=== PATIENT | female | born 1935 | race Native Hawaiian/Other Pacific Islander ===

== ENCOUNTER 2016-10-15 08:36 | Inpatient (IN) | payer OTHER ==
[~2016-10-15 08:36] MED LIST: AMLO5TAB; ASA LO-DOSE81 MG PO; CEPH500C20 PO; CIPRO500 MG PO; CLON0.5T36 PO; FERROUS SULF325 M1 PO; FLUT0.05 NAS; GABA300C2; GLIM4TAB PO; HORIZANT300 MG PO; JANUVIA50 MG OR; LEVO0.117 PO; LIPITOR80 MG; LISI10TA11; MECL25TA84 PO; MELO-13 PO; METOPROL TAR50 MG OR; NEXIUM40 M1 PO; ONGLYZA5 MG PO; PLAVIX75 MG OR
== END 2016-11-15 08:00 | disposition still patient (30) ==
LOC: PAVA 08:36
PROVIDERS: ADMIT Internal Medicine
DX: Z51.89 Encounter for other specified aftercare (principal)

== ENCOUNTER 2016-11-15 09:00 | Inpatient (IN) | payer OTHER | END 2016-12-16 08:37 | disposition still patient (30) | LOC: PAVA 09:00 | PROVIDERS: ADMIT Internal Medicine | DX: Z51.89 Encounter for other specified aftercare (principal) ==

== ENCOUNTER 2016-12-16 09:12 | Inpatient (IN) | payer OTHER | END 2017-01-13 08:17 | disposition still patient (30) | LOC: PAVA 09:12 | PROVIDERS: ADMIT Internal Medicine | DX: Z51.89 Encounter for other specified aftercare (principal) ==

== ENCOUNTER 2017-01-13 04:19 | Outpatient (CLI) | payer OTHER | END 2017-01-13 22:48 | disposition home or self-care (01) | LOC: LAB 04:19 | DX: Z79.01 Long term (current) use of anticoagulants (principal); Z51.81 Encounter for therapeutic drug level monitoring; E11.9 Type 2 diabetes mellitus without complications | CPT/HCPCS: 36415; 83036 ==

== ENCOUNTER 2017-01-13 08:42 | Inpatient (IN) | payer OTHER | END 2017-02-13 08:02 | disposition still patient (30) | LOC: PAVA 08:42 | PROVIDERS: ADMIT Internal Medicine | DX: Z51.89 Encounter for other specified aftercare (principal) ==

== ENCOUNTER 2017-02-13 09:49 | Inpatient (IN) | payer OTHER | END 2017-03-15 08:30 | disposition still patient (30) | LOC: PAVA 09:49 | PROVIDERS: ADMIT Internal Medicine | DX: Z51.89 Encounter for other specified aftercare (principal) ==

== ENCOUNTER 2017-03-12 23:55 | Outpatient (CLI) | payer OTHER | END 2017-03-12 23:59 | disposition home or self-care (01) | LOC: LAB 23:55 | DX: Z16.24 Resistance to multiple antibiotics (principal) | CPT/HCPCS: 87081 ==

== ENCOUNTER 2017-03-15 08:49 | Inpatient (IN) | payer OTHER | END 2017-04-15 08:11 | disposition still patient (30) | LOC: PAVA 08:49 | PROVIDERS: ADMIT Internal Medicine | DX: Z51.89 Encounter for other specified aftercare (principal) ==

== ENCOUNTER 2017-04-15 08:25 | Inpatient (IN) | payer OTHER | END 2017-05-15 14:57 | disposition still patient (30) | LOC: PAVA 08:25 | PROVIDERS: ADMIT Internal Medicine | DX: Z51.89 Encounter for other specified aftercare (principal) ==

== ENCOUNTER 2017-04-16 06:22 | Outpatient (CLI) | payer OTHER ==
[2017-04-16 07:56] LABS: PLATELET COUNT 212 K/uL (152-353)
[2017-04-16 08:11] LABS: POTASSIUM 4.6 mmol/L (3.6-5.2)
== END 2017-04-16 07:30 | disposition home or self-care (01) ==
LOC: LAB 06:22
PROVIDERS: Internal Medicine
DX: Z79.899 Other long term (current) drug therapy (principal); D64.89 Other specified anemias; E03.8 Other specified hypothyroidism; Z51.81 Encounter for therapeutic drug level monitoring
CPT/HCPCS: 36415; 80053; 80061; 84443; 85027

== ENCOUNTER 2017-05-15 15:09 | Inpatient (IN) | payer OTHER | END 2017-06-15 08:36 | disposition still patient (30) | LOC: PAVA 15:09 | PROVIDERS: ADMIT Internal Medicine | DX: Z51.89 Encounter for other specified aftercare (principal) ==

== ENCOUNTER 2017-06-15 09:14 | Inpatient (IN) | payer OTHER | END 2017-07-16 08:11 | disposition still patient (30) | LOC: PAVA 09:14 → EDBD 07-16 08:11 → PAVA 07-16 08:11 | PROVIDERS: ADMIT Internal Medicine | DX: Z51.89 Encounter for other specified aftercare (principal) ==

== ENCOUNTER 2017-07-16 08:28 | Inpatient (IN) | payer OTHER | END 2017-08-15 09:08 | disposition still patient (30) | LOC: PAVA 08:28 → EDBD 08-15 09:08 → PAVA 08-15 09:08 | PROVIDERS: ADMIT Internal Medicine | DX: Z51.89 Encounter for other specified aftercare (principal) ==

== ENCOUNTER 2017-07-19 06:35 | Outpatient (CLI) | payer OTHER | END 2017-07-19 18:58 | disposition home or self-care (01) | LOC: EDBD 06:35 → LAB 06:35 | DX: E11.9 Type 2 diabetes mellitus without complications (principal) | CPT/HCPCS: 36415; 83036 ==

== ENCOUNTER 2017-08-15 09:24 | Inpatient (IN) | payer OTHER | END 2017-09-15 10:25 | disposition still patient (30) | LOC: PAVA 09:24 → EDBD 09-15 10:25 → PAVA 09-15 10:25 | PROVIDERS: ADMIT Internal Medicine ==

== ENCOUNTER 2017-09-15 12:23 | Inpatient (IN) | payer OTHER | END 2017-10-15 08:13 | disposition still patient (30) | LOC: PAVA 12:23 → EDBD 10-15 08:13 | PROVIDERS: ADMIT Internal Medicine ==

== ENCOUNTER 2017-10-15 08:55 | Inpatient (IN) | payer OTHER | END 2017-11-15 08:30 | disposition still patient (30) | LOC: PAVA 08:55 → EDBD 11-15 08:30 → PAVA 11-15 08:30 | PROVIDERS: ADMIT Internal Medicine ==

== ENCOUNTER 2017-10-18 05:59 | Outpatient (CLI) | payer OTHER ==
[2017-10-18 06:43] LABS: PLATELET COUNT 156 K/uL (152-353)
[2017-10-18 06:54] LABS: POTASSIUM 4.2 mmol/L (3.6-5.2)
== END 2017-10-18 07:00 | disposition home or self-care (01) ==
LOC: EDBD 05:59 → LAB 05:59
PROVIDERS: Internal Medicine
DX: E11.9 Type 2 diabetes mellitus without complications (principal); E03.8 Other specified hypothyroidism
CPT/HCPCS: 36415; 80053; 83036; 84443; 85027

== ENCOUNTER 2017-11-15 09:07 | Inpatient (IN) | payer OTHER | END 2017-12-16 08:31 | disposition still patient (30) | LOC: PAVA 09:07 → EDBD 09:07 → PAVA 12-16 08:31 | PROVIDERS: ADMIT Internal Medicine ==

== ENCOUNTER 2017-12-16 09:38 | Inpatient (IN) | payer OTHER | END 2018-01-13 08:08 | disposition still patient (30) | LOC: PAVA 09:38 → EDBD 01-13 08:08 → PAVA 01-13 08:08 | PROVIDERS: ADMIT Internal Medicine ==

== ENCOUNTER 2018-01-13 08:56 | Inpatient (IN) | payer OTHER | END 2018-02-13 08:00 | disposition still patient (30) | LOC: EDBD 08:56 → PAVA 08:56 | PROVIDERS: ADMIT Internal Medicine ==

== ENCOUNTER 2018-02-13 09:00 | Inpatient (IN) | payer OTHER | END 2018-03-15 08:11 | disposition still patient (30) | LOC: PAVA 09:00 | PROVIDERS: ADMIT Internal Medicine ==

== ENCOUNTER 2018-02-18 11:47 | Outpatient (CLI) | payer OTHER | END 2018-02-18 20:26 | disposition home or self-care (01) | LOC: LAB 11:47 | DX: D50.8 Other iron deficiency anemias (principal) | CPT/HCPCS: 36415; 82728; 83540; 83550 ==

== ENCOUNTER 2018-03-15 08:47 | Inpatient (IN) | payer OTHER | END 2018-04-15 08:20 | disposition still patient (30) | LOC: PAVA 08:47 | PROVIDERS: ADMIT Internal Medicine ==

== ENCOUNTER 2018-04-15 08:38 | Inpatient (IN) | payer OTHER | END 2018-05-15 14:15 | disposition still patient (30) | LOC: PAVA 08:38 | PROVIDERS: ADMIT Internal Medicine ==

== ENCOUNTER 2018-04-18 04:22 | Outpatient (CLI) | payer OTHER ==
[2018-04-18 06:23] LABS: PLATELET COUNT 159 K/uL (152-353)
[2018-04-18 07:18] LABS: POTASSIUM 4.5 mmol/L (3.6-5.2)
== END 2018-04-18 21:57 | disposition home or self-care (01) ==
LOC: LAB 04:22
PROVIDERS: Internal Medicine
DX: Z79.899 Other long term (current) drug therapy (principal); Z51.81 Encounter for therapeutic drug level monitoring; E78.4 Other hyperlipidemia
CPT/HCPCS: 80053; 80061; 84443; 85027

== ENCOUNTER 2018-05-15 14:31 | Inpatient (IN) | payer OTHER | END 2018-06-15 08:00 | disposition still patient (30) | LOC: PAVA 14:31 | PROVIDERS: ADMIT Internal Medicine ==

== ENCOUNTER 2018-06-15 09:00 | Inpatient (IN) | payer OTHER | END 2018-07-16 09:57 | disposition still patient (30) | LOC: PAVA 09:00 | PROVIDERS: ADMIT Internal Medicine ==

== ENCOUNTER 2018-07-16 10:09 | Inpatient (IN) | payer OTHER | END 2018-08-15 08:40 | disposition still patient (30) | LOC: PAVA 10:09 | PROVIDERS: ADMIT Internal Medicine ==

== ENCOUNTER 2018-08-15 08:57 | Inpatient (IN) | payer OTHER | END 2018-09-15 08:11 | disposition still patient (30) | LOC: PAVA 08:57 | PROVIDERS: ADMIT Internal Medicine ==

== ENCOUNTER 2018-09-15 08:25 | Inpatient (IN) | payer OTHER | END 2018-10-15 08:04 | disposition still patient (30) | LOC: PAVA 08:25 | PROVIDERS: ADMIT Internal Medicine ==

== ENCOUNTER 2018-10-15 08:18 | Inpatient (IN) | payer OTHER | END 2018-11-15 10:21 | disposition still patient (30) | LOC: PAVA 08:18 | PROVIDERS: ADMIT Internal Medicine ==

== ENCOUNTER 2018-10-25 03:22 | Outpatient (CLI) | payer OTHER ==
[2018-10-25 04:48] LABS: PLATELET COUNT 201 K/uL (152-353)
[2018-10-25 05:11] LABS: POTASSIUM 4.3 mmol/L (3.6-5.2)
== END 2018-10-25 22:06 | disposition home or self-care (01) ==
LOC: LAB 03:22
PROVIDERS: Internal Medicine
DX: E78.5 Hyperlipidemia, unspecified (principal); Z79.899 Other long term (current) drug therapy
CPT/HCPCS: 36415; 80053; 80061; 84443; 85027

== ENCOUNTER 2018-11-15 10:47 | Inpatient (IN) | payer OTHER | END 2018-12-16 14:16 | disposition still patient (30) | LOC: PAVA 10:47 | PROVIDERS: ADMIT Internal Medicine ==

== ENCOUNTER 2018-12-16 14:29 | Inpatient (IN) | payer OTHER | END 2019-01-13 09:14 | disposition still patient (30) | LOC: PAVA 14:29 | PROVIDERS: ADMIT Internal Medicine ==

== ENCOUNTER 2019-01-13 09:45 | Inpatient (IN) | payer OTHER | END 2019-02-13 07:55 | disposition still patient (30) | LOC: PAVA 09:45 | PROVIDERS: ADMIT Internal Medicine ==

== ENCOUNTER 2019-01-27 13:32 | Outpatient (CLI) | payer OTHER ==
[2019-01-27 14:15] LABS: PLATELET COUNT 199 K/uL (152-353)
== END 2019-01-27 23:59 | disposition home or self-care (01) ==
LOC: LAB 13:32
PROVIDERS: Internal Medicine
DX: L03.818 Cellulitis of other sites (principal); Z79.899 Other long term (current) drug therapy
CPT/HCPCS: 36415; 84439; 84443; 85027

== ENCOUNTER 2019-02-13 08:31 | Inpatient (IN) | payer OTHER | END 2019-03-15 09:39 | disposition still patient (30) | LOC: PAVA 08:31 | PROVIDERS: ADMIT Internal Medicine ==

== ENCOUNTER 2019-02-14 04:12 | Outpatient (CLI) | payer OTHER | END 2019-02-14 21:03 | disposition home or self-care (01) | LOC: LAB 04:12 | DX: E11.9 Type 2 diabetes mellitus without complications (principal) | CPT/HCPCS: 36415; 83036 ==

== ENCOUNTER 2019-03-15 10:49 | Inpatient (IN) | payer OTHER | END 2019-04-15 08:12 | disposition still patient (30) | LOC: PAVA 10:49 | PROVIDERS: ADMIT Internal Medicine | DX: Z51.89 Encounter for other specified aftercare (principal) ==

== ENCOUNTER 2019-04-15 08:25 | Inpatient (IN) | payer OTHER | END 2019-05-15 08:29 | disposition still patient (30) | LOC: PAVA 08:25 | PROVIDERS: ADMIT Internal Medicine ==

== ENCOUNTER 2019-04-17 04:27 | Outpatient (CLI) | payer OTHER ==
[2019-04-17 05:30] LABS: PLATELET COUNT 194 K/uL (152-353)
[2019-04-17 07:09] LABS: POTASSIUM 4.2 mmol/L (3.6-5.2); SODIUM 134 mmol/L (136-145)
== END 2019-04-17 19:08 | disposition home or self-care (01) ==
LOC: LAB 04:27
PROVIDERS: Internal Medicine
DX: E78.49 Other hyperlipidemia (principal)
CPT/HCPCS: 36415; 80053; 80061; 84443; 85027

== ENCOUNTER 2019-05-15 03:35 | Outpatient (CLI) | payer OTHER | END 2019-05-15 23:30 | disposition home or self-care (01) | LOC: LAB 03:35 | DX: E11.9 Type 2 diabetes mellitus without complications (principal) | CPT/HCPCS: 36415; 83036; 83540 ==

== ENCOUNTER 2019-05-15 09:14 | Inpatient (IN) | payer OTHER | END 2019-06-15 09:07 | disposition still patient (30) | LOC: PAVA 09:14 | PROVIDERS: ADMIT Internal Medicine ==

== ENCOUNTER 2019-06-15 10:04 | Inpatient (IN) | payer OTHER | END 2019-07-16 15:58 | disposition still patient (30) | LOC: PAVA 10:04 | PROVIDERS: ADMIT Internal Medicine ==

== ENCOUNTER 2019-06-17 04:24 | Outpatient (CLI) | payer OTHER | END 2019-06-17 23:31 | disposition home or self-care (01) | LOC: LAB 04:24 | DX: E03.9 Hypothyroidism, unspecified (principal) | CPT/HCPCS: 84443 ==

== ENCOUNTER 2019-07-16 16:12 | Inpatient (IN) | payer OTHER | END 2019-08-15 08:05 | disposition still patient (30) | LOC: PAVA 16:12 | PROVIDERS: ADMIT Internal Medicine ==

== ENCOUNTER 2019-08-15 08:59 | Inpatient (IN) | payer OTHER | END 2019-09-15 08:52 | disposition still patient (30) | LOC: PAVA 08:59 | PROVIDERS: ADMIT Internal Medicine ==

== ENCOUNTER 2019-08-19 05:22 | Outpatient (CLI) | payer OTHER | END 2019-08-19 20:04 | disposition home or self-care (01) | LOC: LAB 05:22 | DX: E11.9 Type 2 diabetes mellitus without complications (principal); E03.8 Other specified hypothyroidism | CPT/HCPCS: 83036; 84443 ==

== ENCOUNTER 2019-09-15 10:54 | Inpatient (IN) | payer OTHER | END 2019-10-15 08:00 | disposition still patient (30) | LOC: PAVA 10:54 | PROVIDERS: ADMIT Internal Medicine ==

== ENCOUNTER 2019-10-15 09:00 | Inpatient (IN) | payer OTHER | END 2019-11-15 07:59 | disposition still patient (30) | LOC: PAVA 09:00 | PROVIDERS: ADMIT Internal Medicine ==

== ENCOUNTER 2019-10-18 12:23 | Outpatient (CLI) | payer OTHER ==
[2019-10-18 12:36] LABS: PLATELET COUNT 234 K/uL (152-353)
== END 2019-10-18 20:03 | disposition home or self-care (01) ==
LOC: LAB 12:23
PROVIDERS: Internal Medicine
DX: E11.9 Type 2 diabetes mellitus without complications (principal); F03.90 Unspecified dementia, unspecified severity, without behavioral disturbance, psychotic disturbance, mood disturbance, and anxiety
CPT/HCPCS: 80053; 84443; 85027

== ENCOUNTER 2019-11-15 08:24 | Inpatient (IN) | payer OTHER | END 2019-12-16 09:31 | disposition still patient (30) | LOC: PAVA 08:24 | PROVIDERS: ADMIT Internal Medicine ==

== ENCOUNTER 2019-11-16 06:58 | Outpatient (CLI) | payer OTHER | END 2019-11-16 19:39 | disposition home or self-care (01) | LOC: LAB 06:58 | DX: E11.9 Type 2 diabetes mellitus without complications (principal) | CPT/HCPCS: 83036; 83540 ==

== ENCOUNTER 2019-12-16 09:45 | Inpatient (IN) | payer OTHER | END 2020-01-14 12:45 | disposition still patient (30) | LOC: PAVA 09:45 | PROVIDERS: ADMIT Internal Medicine ==

== ENCOUNTER 2019-12-17 04:23 | Outpatient (CLI) | payer OTHER | END 2019-12-17 19:00 | disposition home or self-care (01) | LOC: LAB 04:23 | DX: E03.9 Hypothyroidism, unspecified (principal) | CPT/HCPCS: 84443 ==

== ENCOUNTER 2020-01-14 13:00 | Inpatient (IN) | payer OTHER | END 2020-02-14 08:58 | disposition still patient (30) | LOC: PAVA 13:00 | PROVIDERS: ADMIT Internal Medicine ==

== ENCOUNTER 2020-02-14 09:20 | Inpatient (IN) | payer OTHER | END 2020-03-15 08:02 | disposition still patient (30) | LOC: PAVA 09:20 | PROVIDERS: ADMIT Internal Medicine ==

== ENCOUNTER 2020-02-16 06:35 | Outpatient (CLI) | payer OTHER | END 2020-02-16 23:29 | disposition home or self-care (01) | LOC: LAB 06:35 | DX: E03.8 Other specified hypothyroidism (principal) | CPT/HCPCS: 84443 ==

== ENCOUNTER 2020-02-20 07:07 | Outpatient (CLI) | payer OTHER | END 2020-02-20 19:09 | disposition home or self-care (01) | LOC: LAB 07:07 | DX: D50.8 Other iron deficiency anemias (principal) | CPT/HCPCS: 82728; 83540 ==

== ENCOUNTER 2020-03-15 08:36 | Inpatient (IN) | payer OTHER | END 2020-04-15 08:11 | disposition still patient (30) | LOC: PAVA 08:36 | PROVIDERS: ADMIT Internal Medicine | CPT/HCPCS: 87635; U0002 ==

== ENCOUNTER 2020-04-15 07:13 | Outpatient (CLI) | payer OTHER ==
[2020-04-15 08:07] LABS: PLATELET COUNT 188 K/uL (152-353)
[2020-04-15 08:40] LABS: POTASSIUM 4.5 mmol/L (3.6-5.2)
== END 2020-04-15 19:50 | disposition home or self-care (01) ==
LOC: LAB 07:13
PROVIDERS: Internal Medicine
DX: E03.8 Other specified hypothyroidism (principal); E78.49 Other hyperlipidemia
CPT/HCPCS: 80053; 80061; 84443; 85027

== ENCOUNTER 2020-04-15 08:25 | Inpatient (IN) | payer OTHER | END 2020-05-15 08:25 | disposition still patient (30) | LOC: PAVA 08:25 | PROVIDERS: ADMIT Internal Medicine | CPT/HCPCS: 87635; U0002 ==

== ENCOUNTER 2020-05-15 09:13 | Inpatient (IN) | payer OTHER | END 2020-06-15 08:22 | disposition still patient (30) | LOC: PAVA 09:13 | PROVIDERS: ADMIT Internal Medicine | CPT/HCPCS: 87635; U0002 ==

== ENCOUNTER 2020-05-17 05:45 | Outpatient (CLI) | payer OTHER | END 2020-05-17 19:32 | disposition home or self-care (01) | LOC: LAB 05:45 | DX: D50.8 Other iron deficiency anemias (principal); E11.9 Type 2 diabetes mellitus without complications | CPT/HCPCS: 83036; 83540 ==

== ENCOUNTER 2020-06-15 08:53 | Inpatient (IN) | payer OTHER | END 2020-06-18 11:00 | disposition E | LOC: PAVA 08:53 | PROVIDERS: ADMIT Internal Medicine | CPT/HCPCS: 87635; U0002 ==

== ENCOUNTER 2020-06-18 10:41 | Emergency (ER) | payer OTHER ==
[~2020-06-18] VITALS: Ht 152.4 cm; Wt 72.6 kg
[2020-06-18 10:41] VITALS: TEMP 96.1
[2020-06-18 11:30] LABS: PLATELET COUNT 159 K/uL (152-353)
[2020-06-18 11:40] LABS: POTASSIUM 4.9 mmol/L (3.6-5.2)
== END 2020-06-18 12:06 | disposition expired ==
LOC: ED 10:52
PROVIDERS: Family Medicine
PROC: 5A12012 Performance of Cardiac Output, Single, Manual (ICD-10-PCS; principal; 2020-06-18)
PROC: 0YHB33Z Insertion of Infusion Device into Left Lower Extremity, Percutaneous Approach (ICD-10-PCS; 2020-06-18)
DX: I46.9 Cardiac arrest, cause unspecified (principal)
CPT/HCPCS: 36415; 80053; 82550; 84484; 85027; 92950; 96360; 96375; 96376; 99285; J0171; J0461; J3490